=== PATIENT | male | born 1995 | race Asian ===

== ENCOUNTER 2021-03-27 15:02 | Emergency (ER) | payer OTHER ==
[2021-03-27 15:09] VITALS: BP 127/74; PULSE 101; TEMP 98.9; BMI 27.1
[2021-03-27] MEDS ORDERED: BACITRACIN 15 GM TUBE TOPICAL OINTMENT ONE (15:12)
[2021-03-27] MEDS ORDERED: BACITRACIN 15 GM TUBE TOPICAL OINTMENT TP ONE (15:12)
== END 2021-03-27 15:23 | disposition home or self-care (01) ==
LOC: JER 15:02
DX: S50.811A Abrasion of right forearm, initial encounter (principal)
CPT/HCPCS: 99283-25

== ENCOUNTER 2021-08-15 12:32 | Emergency (ER) | payer SELFPAY | END 2021-08-15 12:41 | disposition home or self-care (01) | LOC: JVIRT 12:32 | DX: Z20.822 Contact with and (suspected) exposure to COVID-19 (principal) | CPT/HCPCS: C9803; Q3014-GT; U0003; U0005 ==

== ENCOUNTER 2022-05-04 17:23 | Emergency (ER) | payer BC ==
[2022-05-04 17:40] VITALS: TEMP 98; BMI 27.8
[2022-05-04 18:04] VITALS: BP 117/79; PULSE 100
== END 2022-05-04 18:08 | disposition home or self-care (01) ==
LOC: EDSEX → JERFT 17:23 → JER 17:23 → JERFT 18:08
DX: S83.011A Lateral subluxation of right patella, initial encounter (principal); X50.0XXA Overexertion from strenuous movement or load, initial encounter
CPT/HCPCS: 73610-TC-RT-FY; 99283-25